=== PATIENT | female | born 1965 | race American Indian/Alaskan Native ===

== ENCOUNTER 2018-10-22 12:55 | Outpatient (CLI) | payer MEDICAID | END 2018-10-22 12:56 | disposition home or self-care (01) | LOC: C.RADH 12:55 | DX: R10.2 Pelvic and perineal pain (principal); M54.5 Low back pain ==

== ENCOUNTER 2018-10-22 13:47 | Emergency (ER) | payer MEDICAID ==
[2018-10-22 14:02] VITALS: BP 101/63; PULSE 55; RESP 18; TEMP 98.1; O2SAT 98
[2018-10-22] MEDS ORDERED: Lidocaine 2% MPF (5 ml) Inj ONE (14:16)
--- NOTE | 2018-10-22 14:25 | C.PDOC ---
History Of Present Illness 53 y/o female presents to the ER for evaluation of splinter in right middle finger. Patient states that she was rushing so she could get ready to come to [facility] for X-Rays for a previous walking issue. However, patient reports that she put her hand inside a drawer and splinter became stuck in her right middle finger.Denies having weakness and numbness in hands. Chief Complaint (Nursing): Finger,Hand,&Wrist History Per: Patient History/Exam Limitations: no limitations Onset/Duration Of Symptoms: Hrs Current Symptoms Are (Timing): Still Present Severity: Moderate Past Medical History Reviewed: Historical Data, Nursing Documentation, Vital Signs Vital Signs: Last Vital Signs Temp 98.1 F 10/22/18 14:02 Pulse 55 L 10/22/18 14:02 Resp 18 10/22/18 14:02 BP 101/63 10/22/18 14:02 Pulse Ox 98 10/22/18 14:02 Primary Care Provider: Kevin Olsen - Medical History PMH: Anxiety, HTN Surgical History: No Surg Hx Family History: States: No Known Family Hx - Social History Hx Alcohol Use: No Hx Substance Use: No - Immunization History Hx Tetanus Toxoid Vaccination: No Hx Influenza Vaccination: No Hx Pneumococcal Vaccination: No Review Of Systems Except As Marked, All Systems Reviewed And Found Negative. Skin: Positive for: Other (splinter in right hand) Neurological: Negative for: Weakness, Numbness Physical Exam - Physical Exam Appears: Non-toxic, No Acute Distress Skin: Normal Color, Warm, Dry, Other (large splinter extends the length of nail on lateral aspect of right middle finger, no subungal hematoma) Extremity: Normal ROM (pt is able to move right hand and fingers freely), T enderness (tenderness to palpation over tip of fingernail in right middle finger), Capillary Refill (< 2 seconds), No Swelling Pulses: Left Radial: Normal, Right Radial: Normal Neurological/Psych: Oriented x3, Normal Speech, Normal Motor, Normal Sensation ED Course And Treatment O2 Sat by Pulse Oximetry: 98 (RA) Pulse Ox Interpretation: Normal Procedure: Blank - Time Out Time Out: Side verified, Site verified - Procedure Procedure:: Foreign Body Removal - Consent obtained: Consent obtained: Verbal - Performed by: Performed by:: Mid-level provider - Regional Nerve Block Regional Nerve Block:: Other (digital) - Patient Position Patient Position:: Sitting - Location Location: Right Finger:: Middle - Description Discription of Procedure: 10/22/18 (Splinter was removed from fingernail on lateral aspect of right middle finger. Nail was partially removed.) - Result Result: Successful - Post-Procedure Post-procedure:: Dressing applied (Xeroform and sterile dressing was applied) - Patient Tolerated Procedure Patient Tolerated Procedure:: Well Medical Decision Making Medical Decision Making: Splinter was successfully removed from nail of right middle finger.Patient tolerated well. Patient has been discharged. Disposition Counseled Patient/Family Regarding: Diagnosis, Need For Followup - Disposition Referrals: Kevin Olsen MD [Staff Provider] - Disposition: HOME/ ROUTINE Disposition Time: 14:38 Condition: IMPROVED Instructions: Foreign Body in Skin (DC), Removal of Foreign Body in Skin Forms: [facility] (Togolese) - POA Present On Arrival: None - Clinical Impression Clinical Impression: Splinter in skin - Scribe Statement The provider has reviewed the documentation as recorded by the Lani Teague Provider Attestation: All medical record entries made by the Andrésibverna were at my direction and personally dictated by me. I have reviewed the chart and agree that the record accurately reflects my personal performance of the history, physical exam, medical decision making, and the department course for this patient. I have also personally directed, reviewed, and agree with the discharge instructions and disposition.
== END 2018-10-22 14:59 | disposition home or self-care (01) ==
LOC: C.ER 13:47
DX: S60.452A Superficial foreign body of right middle finger, initial encounter (principal); W45.8XXA Other foreign body or object entering through skin, initial encounter